=== PATIENT | female | born 1970 | race Caucasian/White ===

== ENCOUNTER 2023-09-28 08:33 | Day surgery (SDC) | payer BC ==
[2023-09-28] VITALS (11 sets, daily range): BP systolic 85–125; BP diastolic 54–73; PULSE 72–113; RESP 11–18; TEMP 97.7; O2SAT 93–100
[~2023-09-28] VITALS: Ht 167.6 cm; Wt 54.4 kg
[2023-09-28] MEDS: cefazolin 2gm/D5W 100mL 100 ML IV ONE (05:30)
[~2023-09-28 08:33] MED LIST: ACET125T3; BETA5POW12; DOCUMENT DATE & TIME OF BETA-BLOCKER PO ONE; ESCI20TA39 PO; ESTR1PAT97; PROG100C11 PO; PROP10TA10 PO; VITAMIN C; VITAMIN D; tranexamic acid inj. 1,000 MG in normal saline IV soln 100ML IV ONE
[2023-09-28] MEDS: famotidine 20mg tablet PO ONE (09:17)
[2023-09-28] MEDS: ringers solution, lacted 1,000 ML IV SCH (09:19)
[2023-09-28] MEDS: oxymetazoline 15 ML nasal spray NS ONE ×2 (09:19→12:28)
[2023-09-28] MEDS ORDERED: fentaNYL/PF 50MCG/1 ML 2ML syringe ONE (10:41)
[2023-09-28] MEDS ORDERED: sevoflurane 250ml liquid IH ONE (10:50)
[2023-09-28] MEDS ORDERED: morphine 4 MG/ML inj SYRINge IV PRN (12:20)
[2023-09-28] MEDS ORDERED: ringers solution, lacted 1,000 ML IV SCH (12:20)
[2023-09-28] MEDS ORDERED: meperidine/PF 25mg/ml syringe IV PRN ×3 (12:20)
[2023-09-28] MEDS ORDERED: morphine 2 MG/ML inj. syringe IV PRN (12:20)
[2023-09-28] MEDS ORDERED: enalaprilat dihydrate 2.5mg/2ml vial IV PRN (12:20)
[2023-09-28] MEDS ORDERED: labetalol 20mg/4ml (5mg/ml) syringe IV PRN (12:20)
[2023-09-28] MEDS: LIDOcaine 1% W/epiNEPHrine 1:100,000 20ml vial ONE (12:27)
[2023-09-28] MEDS: epiNEPHrine 1 mg/ml 30ml MDV ONE (12:27)
[2023-09-28] MEDS: cocaine 4% topical solution 4ml bottle ONE (12:27)
[2023-09-28] MEDS: mupirocin 2% ointment 22GM ONE (12:28)
[2023-09-28] MEDS: Thrombin (Bovine) 5,000 unit vial TP ONE (12:28)
[2023-09-28] MEDS: ondansetron/PF 4mg/2ml inj IV PRN (12:30)
[2023-09-28] MEDS: proCHLORperazine 10 MG/2 ml inj IV PRN (12:46)
[2023-09-28] MEDS: salt irrigation nasal spray 45 ML SPRAY NS STA (13:07)
[2023-09-28] MEDS: mupirocin 2% nasal ointment 1gm UD NS STA (13:07)
== END 2023-09-28 13:43 | disposition home or self-care (01) ==
LOC: PRE-OP 08:33
PROVIDERS: ATTEND Otolaryngology
DX: J34.2 Deviated nasal septum (principal); J34.3 Hypertrophy of nasal turbinates; J32.2 Chronic ethmoidal sinusitis; J32.0 Chronic maxillary sinusitis; F41.9 Anxiety disorder, unspecified; G43.909 Migraine, unspecified, not intractable, without status migrainosus; Z79.899 Other long term (current) drug therapy; Z98.890 Other specified postprocedural states
CPT/HCPCS: 30140; 30520; 31240; 31254; 31255; 31256; 61782; 82948; 93005; A6402; J0171; J0690; J0780; J1100; J2405; J2704; J3010; J3490; J7030; J7050; J7120; Z7506; Z7508; Z7512; A4618; A6449; A7000